=== PATIENT | male | born 1985 | race African-American/Black ===

== ENCOUNTER 2016-04-08 09:58 | Day surgery (SDC) | payer OTHER ==
[~2016-04-08] VITALS: Ht 188 cm; Wt 78.7 kg
[~2016-04-08 09:58] MED LIST: NO MEDS
[2016-04-08 10:47] VITALS: Ht 188 cm; Wt 78.7 kg
[2016-04-08 10:55] VITALS: BP 106/72; PULSE 83; RESP 18
[2016-04-08] MEDS ORDERED: ALBUTEROL (10:57)
[2016-04-08] MEDS ORDERED: PROPOFOL 40 ML ONE (11:13)
--- NOTE | 2016-04-08 12:09 | GILP ---
DATE OF PROCEDURE: NAME OF PROCEDURE: Colonoscopy. SURGEON: Willie Weinstein MD PREOPERATIVE DIAGNOSES: Rectal bleeding. POSTOPERATIVE DIAGNOSES: 1. Colonoscopy all the way to the cecum. 2. Internal and external hemorrhoids. 3. No colon neoplasm or colitis was identified. INDICATION FOR THE PROCEDURE: Mr. Kobe Torres is a 30-year-old male patient who was scheduled for co lonoscopy because he was complaining of rectal bleeding. The patient also has a family history of c olon cancer. The procedure and possible complications were well explained to the patient. The patient understood and consented to the procedure. DESCRIPTION OF PROCEDURE: Under the influence of anesthesia the colonoscope was carefully introduce d in the rectum and under direct vision it was advanced all the way to the cecum. FINDINGS: The patient had internal and external hemorrhoids. No colitis or neoplasm was identified . He tolerated the procedure very well and there was no complication from the procedure. At the end o f the procedure he was awake with stable vital signs and he was discharged home to the care of his [facility]. IMPRESSION: 1. Colonoscopy all the way to the cecum. 2. Internal and external hemorrhoids. 3. No colitis or neoplasm was identified. PLAN: Anusol-HC suppository at bedtime. Dictated By: WILLIE MEDINA/YUSUF Conf#: [id number] DID#: [id number]
[2016-04-08 12:10] VITALS: BP 117/72; PULSE 86; RESP 18
== END 2016-04-08 12:45 | disposition home or self-care (01) ==
LOC: GIL 09:58
PROVIDERS: ATTEND Internal Medicine Gastroenterology
DX: K64.8 Other hemorrhoids (principal); K64.4 Residual hemorrhoidal skin tags; K62.5 Hemorrhage of anus and rectum
CPT/HCPCS: 45378; Z7610